=== PATIENT | female | born 1960 | race Caucasian/White ===

== ENCOUNTER 2019-08-19 18:16 | Outpatient (CLI) | payer BC, SELFPAY ==
--- NOTE | ~2019-08-19 | MR_ITS ---
EXAMINATION: MR shoulder RT wo con DATE: 08/19/2019 19:22 INDICATION: Chronic right shoulder pain TECHNIQUE: Magnetic resonance imaging (MRI) of the right shoulder was performed without intravenous c ontrast. Sequences included axial PD-weighted FS FSE, coronal oblique PD-weighted FS FSE, coronal obl ique T2-weighted FS FSE, sagittal PD-weighted FS FSE, and sagittal T1-weighted SE. COMPARISON: None. FINDINGS: Coracoacromial arch: The acromion undersurface is minimally curved in morphology (type I-II). The coracoacromial ligament is normal. Mild acromioclavicular osteoarthritis. Rotator cuff: Moderate supraspinatus and mild infraspinatus tendinopathy. There is a small predominantly shallow te ar extending approximately 5 mm AP along the bursal side of the insertion of the conjoined portion of the supraspinatus and infraspinatus tendons. There is a linear split tear component to the tear whic h extends posteriorly and deeper through the majority of the thickness of the tendon without a defini tive articular sided component. Small focus of mild tendinopathy without discrete tear at the lesser tuberosity insertion of the subscapularis tendon. The teres minor tendon is normal. Normal rotator cu ff muscle bulk and signal. Biceps tendon, glenoid labrum and glenohumeral cartilage: Long head of the biceps tendon is normal. Linear delaminating tear at the chondral labral junction at the posterior superior glenoid. More peripheral labrum demonstrates amorphous increased signal consi stent with labral degeneration without a discrete linear labral tear plane. Glenohumeral cartilage is otherwise normal. Fluid: Physiologic amount of fluid in the glenohumeral joint and biceps tendon sheath. No loose osteochondra l bodies. Small amount of fluid in the subacromial/subdeltoid bursa consistent with mild bursitis. Bones: Normal marrow signal with no edema, fracture or pathologic marrow replacing process. IMPRESSION: 1. Mild to moderate rotator cuff tendinopathy with small deep bursal sided tear at the conjoined port ion of the supraspinatus and infraspinatus tendons. 2. Small tear at the posterior superior chondral labral junction with associated labral degeneration. 3. Subacromial/subdeltoid bursitis. Reviewed, dictated and finalized at location A. IMPRESSION: 1. Mild to moderate rotator cuff tendinopathy with small deep bursal sided tear at the conjoined portion of the supraspinatus and infraspinatus tendons. 2. Small tear at the posterior superior chondral labral junction with associate d labral degeneration. 3. Subacromial/subdeltoid bursitis.
== END 2019-08-19 18:17 | disposition home or self-care (01) ==
LOC: ANHIMG 18:29
PROVIDERS: PCP Nurse Practitioner Family; Visit Provider Nurse Practitioner Family
DX: M75.51 Bursitis of right shoulder (principal); G89.29 Other chronic pain
CPT/HCPCS: 73221